=== PATIENT | female | born 1970 | race Caucasian/White ===

== ENCOUNTER 2018-04-21 15:16 | Outpatient (CLI) | payer OTHER, BC ==
--- NOTE | 2018-04-21 16:35 | MMO ---
BILATERAL SCREENING MAMMOGRAM: Date: 04/21/18 INDICATION: Annual exam. COMPARISON: Prior exams dated 04/20/17, 03/10/16, and 03/05/15. FINDINGS: Interpretation of this exam was assisted with computer-aided detection. There are scattered fibroglandular elements bilaterally. There is stable architectural distortion in the right breast. No new suspicious mass, cluster of microcalcifications, or area of architectural distortion is eviden t. IMPRESSION: BIRADS 2: Benign Finding(s) Recommend routine annual mammographic screening. POS: [facility]
== END 2018-04-21 15:17 | disposition home or self-care (01) ==
LOC: SCSMAMMO 15:16
PROVIDERS: ATTEND Family Medicine
DX: Z12.31 Encounter for screening mammogram for malignant neoplasm of breast (principal)
CPT/HCPCS: 77067